=== PATIENT | male | born 1965 | race Two or more races ===

== ENCOUNTER 2022-05-01 21:18 | Emergency (ER) | payer MEDICAID, OTHER ==
[~2022-05-01] VITALS: Ht 175.3 cm; Wt 82.2 kg
[2022-05-01 22:27] LABS: Basophils # (auto) 0 10 ^3/uL (0-0.2); Basophils % (auto) 0.6 % (0.0-2.0); Eosinophils # (auto) 0 10 ^3/uL (0-0.8); Eosinophils % (auto) 0.7 % (0.0-7.0); Hematocrit 46.8 % (41.0-53.0); Hemoglobin 16.5 g/dL (13.5-17.5); Lymphocytes # (auto) 1.4 10 ^3/uL (0.4-5.4); Lymphocytes % (auto) 26.6 % (10.0-50.0); Mean Corpuscular Hemoglobin 32.3 pg (28.0-32.0); Mean Corpuscular Hgb Conc. 35.2 g/dL (32.0-36.0); Mean Corpuscular Volume 91.8 fL (80.0-100.0); Monocytes # (auto) 0.4 10 ^3/uL (0-1.3); Monocytes % (auto) 6.7 % (0.0-12.0); Neutrophils # (auto) 3.4 10 ^3/uL (1.6-8.6); Neutrophils % (auto) 65.4 % (37.0-80.0); Nucleated Red Blood Cells % 0.2 %; Red Cell Distribution Width 13.3 % (11.8-14.3); White Blood Cell 5.3 10^3/uL (4.4-10.8)
[2022-05-01 22:44] LABS: Potassium 4.4 mmol/L (3.5-5.1)
[2022-05-01 22:45] LABS: Albumin 3.6 g/dL (3.4-5.0); BUN/Creatinine Ratio 17.4; Calcium 8.8 mg/dL (8.5-10.1)
[2022-05-01 22:47] LABS: Bilirubin, Total 0.2 mg/dL (0.2-1.0)
[2022-05-02] MEDS ORDERED: ACET1CAP14 PO (01:19)
[2022-05-02 01:45] VITALS: BP 140/98
== END 2022-05-02 01:49 | disposition home or self-care (01) ==
LOC: ER 21:21
DX: R07.89 Other chest pain (principal); I10 Essential (primary) hypertension
CPT/HCPCS: 36415; 71046; 80053; 83735; 83880; 84100; 84484; 85025; 93005